=== PATIENT | female | born 1990 | race Caucasian/White ===

== ENCOUNTER → 2016-07-28 12:13 | Outpatient (CLI) | payer MEDICAID ==
[2013-03-30 10:08] VITALS: BMI 27.5
[~2016-07-28 12:13] MED LIST: NORCO 10/325 TA1 TA1 PO; PHENERGAN25 M1 PO
[2016-07-28 14:33] LABS: APPEARANCE HAZY (CLEAR); BACTERIA MODERATE /hpf (NONE SEEN); BILIRUBIN NEGATIVE (NEGATIVE); COLOR YELLOW (YELLOW); EPITHELIAL CELLS 0-5 /hpf (0-5); GLUCOSE NEGATIVE (NEGATIVE); KETONE NEGATIVE (NEGATIVE); LEUKOCYTE ESTERASE NEGATIVE (NEGATIVE); NITRITE NEGATIVE (NEGATIVE); PROTEIN TRACE mg/dL (NEGATIVE); RED CELLS - URINE 0-5 /hpf (0-5); UROBILINOGEN NORMAL (NORMAL); WHITE CELLS - URINE 0-5 /hpf (0-5)
== END | disposition home or self-care (01) ==
LOC: D.ER 12:13 → D.LDO 12:13 → EDSTATUS 12:31
PROVIDERS: Specialist
DX: Z34.83 Encounter for supervision of other normal pregnancy, third trimester (principal); Z3A.40 40 weeks gestation of pregnancy; R60.0 Localized edema; R11.2 Nausea with vomiting, unspecified; R10.9 Unspecified abdominal pain

== ENCOUNTER → 2020-03-22 09:56 | Outpatient (CLI) | payer OTHER ==
[2013-03-30 10:08] VITALS: BMI 27.5
== END | disposition home or self-care (01) ==
LOC: D.MRI 09:56
PROVIDERS: ATTEND Orthopaedic Surgery
DX: M25.362 Other instability, left knee (principal)